=== PATIENT | female | born 1950 | race Caucasian/White ===

== ENCOUNTER 2024-11-14 09:59 | Day surgery (SDC) | payer MEDICARE, SELFPAY ==
[2024-10-19 10:46] VITALS: BMI 25.0
[2024-11-13 14:09] VITALS: BMI 25.0
[2024-11-14 10:36] VITALS: BP 129/64; PULSE 84; RESP 16; TEMP 36.4; O2SAT 95
[2024-11-14] MEDS: LACTATED RINGERS 1000ML 1,000 ML 50 ML IV (10:51)
--- NOTE | 2024-11-14 10:59 | P.PNANES_ITS ---
[facility] Disclaimer: The information contained in this section may have been updated after the patient was seen, as this information can be updated by other users. Medical History Peptic ulcer disease OAB (overactive bladder) Microscopic colitis Insomnia Hypertension History of transfusion GERD (gastroesophageal reflux disease) Gastritis Diverticulosis of colon Diverticulitis Colostomy present Chronic sinusitis Anxiety Fusion of toes of right foot Hammer toe Breast hematoma Breast abscess of female Surgical History History of total knee arthroplasty Status post scar revision Left Leg and Knee S/P surgery on nasal septum History of salpingo-oophorectomy History of vaginal hysterectomy History of knee surgery Status post small bowel resection History of exploratory laparotomy History of endoscopy History of dilation and curettage Status post colostomy takedown History of colonoscopy History of colon resection History of cholecystectomy History of fusion of cervical spine History of augmentation mammoplasty History of abdominal surgery Family History Mother Lung cancer Father Cirrhosis Brother Dementia Social History Smoking Status: Former smoker alcohol intake: former substance use type: denies use current occupational status: retired Travel in the last 8 weeks?: Inside the [place] [facility] Anesthesia Checklist Patient Identification Patient Identification: Verbal (Name & ) Structural Data Admitted From: Home Planned Operative Procedure/s: egd Consent for Planned Operative Procedure(s) Verified: Yes NPO Status Verified Time NPO: 00:00 Airway Assessment Mallampati Score:: Class II C-Spine Mobility Assessed: Yes TMJ Mobility Assessed: Yes Dentition: Good Dentition Neurological Assessment Level of Consciousness: Awake, Alert and Appropriate Anesthesia Plan Anesthesia Risk discussed: Yes Anesthesia Plan: Verified ASA Class: II Anesthesia Type: MAC
--- NOTE | 2024-11-14 11:51 | EXP.HP ---
History of Present Illness *Admission Date: 11/14/24 *History of present illness: Mrs. Lomas is a 74-year-old female who is here for diagnostic EGD. The patient does report heartburn daily and this is usually midday or upright. She does get some bloating and intermittent belching. Her Nexium was increased to 40 mg [address] daily[address] [facility] Disclaimer: The information contained in this section may have been updated after the patient was seen, as this information can be updated by other users. Medical History Peptic ulcer disease OAB (overactive bladder) Microscopic colitis Insomnia Hypertension History of transfusion GERD (gastroesophageal reflux disease) Gastritis Diverticulosis of colon Diverticulitis Colostomy present Chronic sinusitis Anxiety Fusion of toes of right foot Hammer toe Breast hematoma Breast abscess of female Surgical History History of total knee arthroplasty Status post scar revision Left Leg and Knee S/P surgery on nasal septum History of salpingo-oophorectomy History of vaginal hysterectomy History of knee surgery Status post small bowel resection History of exploratory laparotomy History of endoscopy History of dilation and curettage Status post colostomy takedown History of colonoscopy History of colon resection History of cholecystectomy History of fusion of cervical spine History of augmentation mammoplasty History of abdominal surgery Family History Mother Lung cancer Father Cirrhosis Brother Dementia Social History (Updated 11/14/24 @ 11:00 by James Kat CRNA) Smoking Status: Former smoker alcohol intake: former substance use type: denies use current occupational status: retired Travel in the last 8 weeks?: Inside the [place] Have you lived/traveled outside US in past 30 days?: No Contact w/someone who lives/traveled outside US past 30 days?: No Exposure to someone with infectious disease in past 14 days?: No Do you have a fever (greater than 100.4 F or 38 C)?: No Have you tested positive for COVID-19?: No Exposed to someone with COVID-19 in past 14 days?: No Do you have a sore throat?: No Do you have a cough?: No Do you have shortness of breath?: No Do you have a headache?: No Do you have any weakness?: No Are you experiencing any nausea/vomitting?: No Do you have any diarrhea?: No Are you experiencing any unusual bleeding?: No Do you have any muscle aches/pain?: No Do you have any abdominal pain?: No Are you experiencing loss of taste or smell?: No Other Medical History Have you received the Pneumonia Vaccine: No Review of Systems Review of Systems Review of systems (narrative): Negative *Cardiovascular Comments: Negative *Gastrointestinal Comments: Negative *Genitourinary Comments: Negative *Musculoskeletal Comments: Negative *Neurologic Comments: Negative Meds Home Medications and Allergies Home Medications ?Medication ?Instructions ?Recorded ?Confirmed ?Type bupropion HCl 200 mg tablet,12 hr 200 mg PO DAILY 08/28/24 11/14/24 History sustained-release (Wellbutrin SR) clonazepam 1 mg tablet 1 mg PO BID PRN Anxiety 08/28/24 11/14/24 History escitalopram oxalate 20 mg tablet 20 mg PO DAILY 08/28/24 11/14/24 History esomeprazole magnesium 20 mg 20 mg PO NEEDED PRN Acid Reflux 08/28/24 11/14/24 History capsule,delayed release (Nexium) fluticasone propionate 50 See Rx Instructions .Route 08/28/24 11/14/24 History mcg/actuation nasal .COMPLEX allergies spray,suspension losartan 50 mg tablet 50 mg PO DAILY 08/28/24 11/14/24 History melatonin 10 mg capsule 10 mg PO HS PRN Insomnia 08/28/24 11/14/24 History methocarbamol 750 mg tablet 750 mg PO NEEDED PRN Anxiety 08/28/24 11/14/24 History ondansetron 4 mg disintegrating 4 mg PO Q6H 08/28/24 11/14/24 History tablet oxybutynin chloride 10 mg 15 mg PO DAILY 08/28/24 11/14/24 History tablet,extended release 24 hr pantoprazole 40 mg tablet,delayed 40 mg PO DAILY 08/28/24 11/14/24 History release rosuvastatin 10 mg tablet 10 mg PO DAILY 08/28/24 11/14/24 History linaclotide 145 mcg capsule 145 mcg PO DAILY 10/19/24 11/14/24 History (Linzess) sodium,potassium,mag sulfates 17.5 See Rx Instructions PO .COMPLEX 10/31/24 Rx gram-3.13 gram-1.6 gram oral soln #354 mL (Suprep Bowel Prep Kit) New Prescriptions to Start Prescriptions: Allergies Allergy/AdvReac Type Severity Reaction Status Date / Time pedritoels Allergy Vomiting Verified 11/14/24 10:30 Exam Data for Last 24 hours Vital signs and Labs for Last 24 Hours: Temp Pulse Resp BP Pulse Ox O2 Del Method 97.5 F L 84 16 129/64 95 Room Air 11/14/24 10:36 11/14/24 10:36 11/14/24 10:36 11/14/24 10:36 11/14/24 10:36 11/14/24 10:36 I & O for Last 24 hours: Intake & Output 11/11/24 11/12/24 11/13/24 11/14/24 23:59 23:59 23:59 23:59 Weight 160 lb *Routine HEENT Exam Head: Present normocephalic Eye: Present EOMI and PERRL ENT: Present mucous membranes moist *Routine Neck Exam Neck: Present supple *Routine Respiratory Exam Respiratory: Present CTA bilaterally *Routine Cardiovascular Exam Cardiovascular: Present RRR *Routine Abdominal Exam Abdominal: Present soft and normoactive bowel sounds; Absent tenderness *Routine Rectal Exam Rectal:: deferred *Routine Genitalia Exam Genitalia:: deferred *Routine Extremities Exam Extremities: Absent cyanosis, clubbing or edema *Routine Skin Exam Skin: Present warm; Absent rash *Routine Neurological Exam Neurological: Present alert and oriented X3 Assessment and Plan *Assessment and plan (1) Heartburn: Status: Acute Category: Medical Code(s): R12 - Heartburn (2) GERD (gastroesophageal reflux disease): Status: Acute Category: Medical Code(s): K21.9 - Gastro-esophageal reflux disease without esophagitis Plan A/P: 1. Heartburn/GERD is the preprocedural diagnosis. The patient will be anesthetized/sedated using MAC sedation. The patient has been seen and examined. Cardiac and lung assessment prior to the examination is stable. Proceed with planned diagnostic EGD.
--- NOTE | 2024-11-14 12:02 | P.PCN_ITS ---
[facility] Procedure Note Date: 11/14/24 Time: 12:10 Procedure Note:: Upper Endoscopy Procedure Report: Esophagogastroduodenoscopy with cold biopsies Endoscopost: Brodie Farley II, MD Referring Physician: Ike Elmore MD Date of Procedure: November 14, 2024 Equipment: Olympus GIF-1100 standard upper endoscope Sedation: MAC sedation Indications: Mrs. Lomas is a 74-year-old female who is here for diagnostic upper endoscopy because of her chronic heartburn and reflux that is daily and usually midday and when she is upright. She has increased Nexium to 40 mg by mouth twice daily. She does have intermittent belching and some bloating. Patient also has a history of outlet dysfunction constipation. She did have partial colectomy in 2019 (Dr. Hilton/[facility]). She did have diverticulitis with lysis of adhesions and temporary colostomy. Since she has been on Linzess her symptoms of obstipation/incomplete defecation have improved. She recently had a bout of marked dumping/diarrhea last week and had nausea and some vomiting this week and was unable to tolerate bowel prep. Procedure: Prior to the procedure, a history and physical exam was performed, and patient's medications and allergies were reviewed. The risks, benefits and alternatives of the sedation and procedure were discussed with the patient. All questions were answered and informed consent was obtained. The patient was brought to the procedure room. Patient identification and proposed procedure were verified by the physician and the nurse. The patient was placed in a left lateral decubitus position and the scope was passed under direct vision. Throughout the procedure, the patient's blood pressure, pulse, and oxygen saturations were monitored continuously. The upper GI endoscopy was accomplished without difficulty. The patient tolerated the procedure well. Findings: The scope was passed directly into the upper esophagus and advanced to the fourth portion of duodenum and proximal jejunum. A cold biopsy was taken from the proximal jejunum for the disaccharidase assay. The proximal jejunum, post bulbar duodenum, ampulla and duodenal bulb were normal with normal mucosa and conniventes. The scope was withdrawn through a normal duodenal bulb and pylorus into the stomach. There was moderate bile reflux with moderate linear reactive gastropathy of the antrum and body of the stomach. Cold biopsies were taken at the incisura of the stomach. The fundus of the stomach was normal. Upon retroflexion there was no hiatal hernia. The scope was then withdrawn into the esophagus. There was no evidence of reflux esophagitis or Phelps's. There were some tertiary contractions and mild esophageal dysmotility. The remainder of the esophageal mucosa was normal. Impression: 1. Nonerosive GERD with mild esophageal dysmotility 2. Bile reflux with moderate linear reactive gastropathy Plan: I will follow-up the biopsies and discuss the findings with the patient. The patient does have primarily bile reflux/functional GERD and most there is bile reflux with symptoms of heartburn, bloating and belching are related to and driven by lower intestinal gas pressure gradients/high gas pressure buildup resulting in backflow of bile and peptic fluid from the duodenum into the stomach (duodenal reflux). This gas production (carbon dioxide, hydrogen, methane, etc.) from the lower intestinal tract is the byproduct of colonic bacterial fermentation. This colonic fermentation occurs when there is more carbohydrate (dietary starches, sugars and high residue plant fiber) substrate that does not get digested (in the middle or small intestine) or occurs when there is colonic fecal buildup and colonic bacterial overgrowth. This indeed leads to bloating and the gas pressure buildup with gas pressure gradients that do drive backflow and reflux. I am going to recommend dietary measures and may move towards low FODMAP diet. I will check disaccharidase assay and consider starting Creon and [id number]-olkyojk Beano. Also feel that she might benefit from OTC Iberogast. We will also reschedule colonoscopy.
[2024-11-14 12:11] VITALS: BP 108/60; PULSE 77; RESP 20; TEMP 36.6; O2SAT 96
[2024-11-14 12:21] VITALS: BP 132/69; PULSE 73; RESP 20; O2SAT 99
[2024-11-14 12:31] VITALS: BP 130/75; PULSE 71; RESP 20; O2SAT 99
[2024-11-14 12:41] VITALS: BP 135/67; PULSE 74; RESP 20; TEMP 36.6; O2SAT 99
== END 2024-11-14 12:50 | disposition home or self-care (01) ==
PROVIDERS: PCP Family Medicine; Visit Provider Internal Medicine Gastroenterology
PROC: 0DJ08ZZ Inspection of Upper Intestinal Tract, Via Natural or Artificial Opening Endoscopic (ICD-10-PCS; CPT 43239; principal; 2024-11-14 11:30)
DX: K21.9 Gastro-esophageal reflux disease without esophagitis (principal); K31.9 Disease of stomach and duodenum, unspecified; I10 Essential (primary) hypertension; Z87.891 Personal history of nicotine dependence; Z79.899 Other long term (current) drug therapy
CPT/HCPCS: 43239; 82657; J2003; J2704; J7120

== ENCOUNTER 2025-01-16 09:12 | Day surgery (SDC) | payer MEDICARE, SELFPAY ==
[2025-01-09 15:12] VITALS: BMI 25.7
--- NOTE | 2025-01-13 12:14 | EXP.HP ---
History of Present Illness *Admission Date: 01/16/25 *History of present illness: Mrs. Lomas is a 74-year-old female who is here for diagnostic colonoscopy. The patient has had a history of outlet dysfunction constipation with partial colectomy in 2018 (Dr. Hilton/[facility]). She had diverticulitis with lysis of adhesions and temporary colostomy. She did have a marked change in bowel habits intermittently with diarrhea and was unable to tolerate the bowel prep in October 2024. The examination is deemed medically necessary for diagnostic colonoscopy. The patient has been seen, interviewed and examined prior to the procedure by both myself and the anesthesia provider. [facility] Disclaimer: The information contained in this section may have been updated after the patient was seen, as this information can be updated by other users. Medical History Peptic ulcer disease OAB (overactive bladder) Microscopic colitis Insomnia Hypertension History of transfusion GERD (gastroesophageal reflux disease) Gastritis Diverticulosis of colon Diverticulitis Colostomy present Chronic sinusitis Anxiety Fusion of toes of right foot Hammer toe Breast hematoma Breast abscess of female Surgical History History of total knee arthroplasty Status post scar revision S/P surgery on nasal septum History of salpingo-oophorectomy History of vaginal hysterectomy History of knee surgery Status post small bowel resection History of exploratory laparotomy History of endoscopy History of dilation and curettage Status post colostomy takedown History of colonoscopy History of colon resection History of cholecystectomy History of fusion of cervical spine History of augmentation mammoplasty History of abdominal surgery Family History Mother Lung cancer Father Cirrhosis Brother Dementia Social History Smoking Status: Former smoker alcohol intake: current substance use type: denies use current occupational status: retired Travel in the last 8 weeks?: None caffeine: Yes Have you lived/traveled outside US in past 30 days?: No Contact w/someone who lives/traveled outside US past 30 days?: No Exposure to someone with infectious disease in past 14 days?: No Do you have a fever (greater than 100.4 F or 38 C)?: No Have you tested positive for COVID-19?: No Exposed to someone with COVID-19 in past 14 days?: No Do you have a sore throat?: No Do you have a cough?: No Do you have any weakness?: No Are you experiencing any nausea/vomitting?: No Do you have any diarrhea?: No Are you experiencing any unusual bleeding?: No Do you have any muscle aches/pain?: No Do you have any abdominal pain?: No Are you experiencing loss of taste or smell?: No Other Medical History Have you received the Pneumonia Vaccine: No Review of Systems Review of Systems Review of systems (narrative): Negative *Cardiovascular Comments: Negative *Gastrointestinal Comments: Negative *Genitourinary Comments: Negative *Musculoskeletal Comments: Negative *Neurologic Comments: Negative Meds Home Medications and Allergies Home Medications ?Medication ?Instructions ?Recorded ?Confirmed ?Type bupropion HCl 200 mg tablet,12 hr 200 mg PO DAILY 08/28/24 01/16/25 History sustained-release (Wellbutrin SR) clonazepam 1 mg tablet 1 mg PO BID PRN Anxiety 08/28/24 01/16/25 History escitalopram oxalate 20 mg tablet 20 mg PO DAILY 08/28/24 01/16/25 History fluticasone propionate 50 See Rx Instructions .Route 08/28/24 01/16/25 History mcg/actuation nasal .COMPLEX allergies spray,suspension losartan 50 mg tablet 50 mg PO DAILY 08/28/24 01/16/25 History melatonin 10 mg capsule 10 mg PO HS PRN Insomnia 08/28/24 01/16/25 History methocarbamol 750 mg tablet 750 mg PO NEEDED PRN Anxiety 08/28/24 01/16/25 History oxybutynin chloride 10 mg 15 mg PO DAILY 08/28/24 01/16/25 History tablet,extended release 24 hr pantoprazole 40 mg tablet,delayed 40 mg PO DAILY 08/28/24 01/16/25 History release (Protonix) rosuvastatin 10 mg tablet 10 mg PO DAILY 08/28/24 01/16/25 History linaclotide 145 mcg capsule 145 mcg PO DAILY 10/19/24 01/16/25 History (Linzess) sodium,potassium,mag sulfates 17.5 See Rx Instructions PO .COMPLEX 10/31/24 01/16/25 Rx gram-3.13 gram-1.6 gram oral soln #354 mL (Suprep Bowel Prep Kit) Creon 36,000 unit-114,000 1 cap PO .With meals #100 caps 11/14/24 01/16/25 Rx unit-180,000 unit capsule,delayed release (hfrpye-umwwceio-pqnzoyp) sodium sul 1.479 gram-potas ch See Rx Instructions PO PER PKG DIR 01/02/25 01/16/25 Rx 0.188 gram-magnes sul 0.225 gram colonscopy #24 tabs tablet (Sutab) eayhy-e-zlpzptayfdbep 150 unit 150 unit PO DAILY 01/09/25 01/16/25 History tablet diphenhydramine 25 1 tab PO HS PRN Mild Pain (Scale 01/09/25 01/16/25 History mg-acetaminophen 500 mg tablet Score 1-4) (Tylenol PM Extra Strength) ondansetron 4 mg disintegrating 4 mg PO Q6H PRN Nausea 01/09/25 01/16/25 History tablet New Prescriptions to Start Prescriptions: Allergies Allergy/AdvReac Type Severity Reaction Status Date / Time mussels Allergy Vomiting Verified 01/16/25 10:09 Exam *Routine HEENT Exam Head: Present normocephalic Eye: Present EOMI and PERRL ENT: Present mucous membranes moist *Routine Neck Exam Neck: Present supple *Routine Respiratory Exam Respiratory: Present CTA bilaterally *Routine Cardiovascular Exam Cardiovascular: Present RRR *Routine Abdominal Exam Abdominal: Present soft and normoactive bowel sounds; Absent tenderness *Routine Rectal Exam Rectal:: deferred *Routine Genitalia Exam Genitalia:: deferred *Routine Extremities Exam Extremities: Absent cyanosis, clubbing or edema *Routine Skin Exam Skin: Present warm; Absent rash *Routine Neurological Exam Neurological: Present alert and oriented X3 Assessment and Plan *Assessment and plan (1) Diarrhea: Status: Acute Category: Medical Code(s): R19.7 - Diarrhea, unspecified (2) Bloating: Status: Acute Category: Medical Code(s): R14.0 - Abdominal distension (gaseous) (3) Microscopic colitis, unspecified: Status: Acute Category: Medical Code(s): K52.839 - Microscopic colitis, unspecified (4) Fear of loss of control of bowel: Status: Acute Category: Medical Code(s): 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 Diarrhea with bloating and fear of loss of bowel control is the preprocedural diagnosis. The patient formerly had microscopic colitis. The patient will be anesthetized/sedated using MAC sedation. The patient has been seen and examined. Cardiac and lung assessment prior to the examination is stable. Proceed with planned diagnostic colonoscopy.
--- NOTE | 2025-01-16 07:05 | HMH.PROCNOTE ---
[facility] Procedure Note Date: 01/16/25 Time: 11:04 Procedure Note:: Sigmoidoscopy procedure Report: Aborted colonoscopy?cold biopsies taken Endoscopist: Brodie Farley II, MD Referring physician: Ike Elmore MD, [address] [place] [address] , [address] [address] Date of Procedure: January 16, 2025 Equipment: Olympus [id number] adult colonoscope Sedation: MAC sedation Indication: Mrs. Lomas is a 74-year-old female who is here for diagnostic colonoscopy. The patient has had a history of outlet dysfunction constipation with partial colectomy in 2019 (Dr. Hilton/[facility]). She had diverticulitis with lysis of adhesions and temporary colostomy. The patient continues to struggle with bowel control and diarrhea. She reports no abdominal pain, rectal bleeding or weight loss. She does get fecal urgency and intermittent fecal incontinence. She did have a marked change in bowel habits intermittently with diarrhea and was unable to tolerate the bowel prep in October 2024. The examination is deemed medically necessary for diagnostic colonoscopy. Procedure: Prior to the procedure, a history and physical exam was performed, and patient's medications and allergies were reviewed. The risks, benefits and alternatives of the sedation and procedure were discussed with the patient. All questions were answered and informed consent was obtained. The patient was brought to the procedure room. Patient identification and proposed procedure were verified by the physician and the nurse. The patient was placed in a left lateral decubitus position and the scope was passed under direct vision. Throughout the procedure, the patient's blood pressure, pulse, and oxygen saturations were monitored continuously. The colonoscopy was accomplished without difficulty. The patient tolerated the procedure well. Findings: On digital rectal examination, there was normal rectal tone and no external hemorrhoids. There were small tags. The scope was then inserted through the anal canal to the rectum and advanced to 25 cm from the anal verge. There was a marked amount of brown liquid and solid stool with no visibility. The preparation was inadequate and the procedure was aborted. Cold biopsies were taken from the sigmoid colon to rule out microscopic colitis. The visualized rectosigmoid and rectum were normal. Impression: 1. Inadequate bowel preparation?aborted colonoscopy Plan: I will discuss with the patient and family. The patient has struggled with bowel preparation and we do need to determine whether repeating colonoscopy is warranted here. We will also discuss treatment options.
[2025-01-16 10:10] VITALS: BP 146/73; PULSE 65; RESP 18; TEMP 36.9; O2SAT 97
[2025-01-16] MEDS: LACTATED RINGERS 1000ML 1,000 ML 50 ML IV (10:22)
--- NOTE | 2025-01-16 10:25 | P.PNANES_ITS ---
[facility] Disclaimer: The information contained in this section may have been updated after the patient was seen, as this information can be updated by other users. Medical History Peptic ulcer disease OAB (overactive bladder) Microscopic colitis Insomnia Hypertension History of transfusion GERD (gastroesophageal reflux disease) Gastritis Diverticulosis of colon Diverticulitis Colostomy present Chronic sinusitis Anxiety Fusion of toes of right foot Hammer toe Breast hematoma Breast abscess of female Surgical History History of total knee arthroplasty Status post scar revision S/P surgery on nasal septum History of salpingo-oophorectomy History of vaginal hysterectomy History of knee surgery Status post small bowel resection History of exploratory laparotomy History of endoscopy History of dilation and curettage Status post colostomy takedown History of colonoscopy History of colon resection History of cholecystectomy History of fusion of cervical spine History of augmentation mammoplasty History of abdominal surgery Family History Mother Lung cancer Father Cirrhosis Brother Dementia Social History Smoking Status: Former smoker alcohol intake: current substance use type: denies use current occupational status: retired Travel in the last 8 weeks?: None caffeine: Yes Have you lived/traveled outside [place] in past 30 days?: No Contact w/someone who lives/traveled outside US past 30 days?: No Exposure to someone with infectious disease in past 14 days?: No Do you have a fever (greater than 100.4 F or 38 C)?: No Have you tested positive for COVID-19?: No Exposed to someone with COVID-19 in past 14 days?: No Do you have a sore throat?: No Do you have a cough?: No Do you have any weakness?: No Are you experiencing any nausea/vomitting?: No Do you have any diarrhea?: No Are you experiencing any unusual bleeding?: No Do you have any muscle aches/pain?: No Do you have any abdominal pain?: No Are you experiencing loss of taste or smell?: No [facility] Anesthesia Checklist Patient Identification Patient Identification: Arm Band and Verbal (Name & ) Structural Data Admitted From: Home Planned Operative Procedure/s: colonscopy Consent for Planned Operative Procedure(s) Verified: Yes Verified Documents: Surgical Consent and History and Physical NPO Status Verified Time NPO: 08:30 Additional verifications Anesthesia Reactions: No Previous Colonoscopy: Yes Airway Assessment Mallampati Score:: Class II Dentition: Good Dentition Neurological Assessment Level of Consciousness: Awake, Alert and Appropriate Hx Seizures: No Anesthesia Plan Anesthesia Risk discussed: Yes Anesthesia Plan: Verified ASA Class: II Anesthesia Type: MAC
[2025-01-16 11:00] VITALS: BP 101/61; PULSE 65; RESP 15; TEMP 36.3; O2SAT 97
[2025-01-16 11:10] VITALS: BP 146/73; PULSE 68; RESP 17; TEMP 36.3; O2SAT 98
[2025-01-16 11:20] VITALS: BP 135/86; PULSE 60; RESP 17; TEMP 36.3; O2SAT 99
[2025-01-16 11:29] VITALS: BP 136/78; PULSE 67; RESP 17; TEMP 36.3; O2SAT 100
== END 2025-01-16 12:13 | disposition home or self-care (01) ==
PROVIDERS: PCP Family Medicine; Visit Provider Internal Medicine Gastroenterology
PROC: 0DJD8ZZ Inspection of Lower Intestinal Tract, Via Natural or Artificial Opening Endoscopic (ICD-10-PCS; CPT 45378; principal; 2025-01-16 10:30)
DX: R19.7 Diarrhea, unspecified (principal); R15.2 Fecal urgency; F41.9 Anxiety disorder, unspecified; K21.9 Gastro-esophageal reflux disease without esophagitis; I10 Essential (primary) hypertension; Z87.891 Personal history of nicotine dependence; Z91.013 Allergy to seafood; Z79.899 Other long term (current) drug therapy
CPT/HCPCS: 45331; J7120